=== PATIENT | female | born 1965 | race Caucasian/White ===

== ENCOUNTER 2019-09-05 09:35 | Emergency (ER) | payer OTHER ==
[~2019-09-05] VITALS: Ht 152.4 cm; Wt 83.9 kg
[2019-09-05 09:42] VITALS: BP 144/97
--- NOTE | 2019-09-05 09:51 | NUR ---
53 F C/O BILAT LOWER EXTREMITY PAIN 10/10 THAT STARTED FROM BILAT HIPS AND HAS MOVED DOWN TO BILAT CALFS X5 DAYS. NO REDNESS/WARMTH OR TENDERNESS TO TOUCH ON EITHER CALF. PT DENIES INJURY. HX: NONE RX: NONE
--- NOTE | 2019-09-05 10:15 | NUR ---
Dr. Quezada at bedside evaluating patient.
--- NOTE | 2019-09-05 10:21 | NUR ---
Pt. is awake and alert and laying on bed. states a 10/10 pain BLE . bed at lowest and locked, rails up x 1, HOB ELEVATED.
--- NOTE | 2019-09-05 11:11 | NUR ---
XRAY AT BEDSIDE.
--- NOTE | 2019-09-05 11:21 | NUR ---
ULTRASOUND AT BEDSIDE.
[2019-09-05] MEDS ORDERED: HYDROcodone/APAP 5/325 MG 1 TAB TAB PO ONE ×2 (11:30→13:45)
--- NOTE | 2019-09-05 12:17 | NUR ---
PT. REPORTS PAIN OF 10/10 TO 7/10 AFTER EVALUATION OF PAIN MED ADMINISTRATION.
[2019-09-05] MEDS ORDERED: TRIAMCINOLONE 40 MG/ML 5ML VIAL IM ONE (13:10)
[2019-09-05] MEDS ORDERED: LIDOCAINE 2% 1000 MG/50 ML VIAL INJ ONE (13:10)
--- NOTE | 2019-09-05 14:23 | NUR ---
Patient discharged with v/s stable. Written and verbal after care instructions given and explained. Patient alert, oriented and verbalized understanding of instructions. Wheel Chair Assisted out of the ER but ambulatory with steady gait. All questions addressed prior to discharge. ID band removed. Patient advised to follow up with PMD. Rx of ibuprofen and norco given. Patient educated on indication of medication including possible reaction and side effects. Opportunity to ask questions provided and answered.
== END 2019-09-05 14:27 | disposition home or self-care (01) ==
LOC: MED 09:35
DX: M79.604 Pain in right leg (principal); M79.605 Pain in left leg; M54.9 Dorsalgia, unspecified; F17.210 Nicotine dependence, cigarettes, uncomplicated; Z71.6 Tobacco abuse counseling
CPT/HCPCS: 73590; 93970; 99284; J2001; J3301; Q0092